=== PATIENT | female | born 1955 | race Caucasian/White ===

== ENCOUNTER 2016-12-05 10:05 | Day surgery (SDC) | payer MEDICARE ==
[2016-12-05 10:28] VITALS: BMI 38.7
[2016-12-05] MEDS ORDERED: Lactated Ringer's 1,000 ML IV ONE ×2 (12:26→13:55)
[2016-12-05] MEDS ORDERED: Lidocaine 2% w Epi 1:200,000 Pf Inj IJ ONE (13:10)
[2016-12-05] MEDS ORDERED: MethylPREDNISolone Depo 40 mg/ml Inj IM ONE (13:40)
[2016-12-05] MEDS ORDERED: Bupivacaine 0.5% 50 ML IJ ONE (13:40)
[2016-12-05] MEDS ORDERED: DiphenhydrAMINE 50 mg/ml Inj IVP PRN (14:13)
[2016-12-05] MEDS ORDERED: Lactated Ringer's 1,000 ML IV SCH (14:13)
[2016-12-05] MEDS: HYDROmorphone 0.5 mg/0.5 ml ISec IVP PRN ×3 (14:15→14:55)
[2016-12-05] MEDS ORDERED: Oxycodone/Acetaminophen 5/325 mg Tab PO PRN ×2 (14:16)
--- NOTE | 2016-12-05 14:21 | PCM.SURG1 ---
Surgeon's Initial Post Op Note - Surgeon's Notes Surgeon: Dr. Hebert ARMENDARIZ Environmental [employer] Specialist: Cassie Queen PA-C, Dr Cole DPM PGY-1 Type of Anesthesia: General Endo Anesthesia Administered By: Dr. Clifton Pre-Operative Diagnosis: left shouler rotator cuff tear Operative Findings: see dictation Post-Operative Diagnosis: same Operation Performed: left should arthroscopy Specimen/Specimens Removed: none Estimated Blood Loss: EBL {In ML}: 5 Blood Products Given: N/A Drains Used: No Drains Post-Op Condition: Good Date of Surgery/Procedure: 12/05/16 Time of Surgery/Procedure: 14:21
[2016-12-05 16:09] VITALS: RESP 18
--- NOTE | 2016-12-05 17:38 | OP ---
PROCEDURE DATE: 12/05/2016 DATE OF OPERATION: 12/05/2016 ATTENDING PHYSICIAN: Gissel Ambrosio MD ASSISTANTS: COCO Rene PREOPERATIVE DIAGNOSIS: 1. Left shoulder partial rotator cuff tear. 2. Synovitis. 3. Impingement. POST- OPERATIVE DIAGNOSIS 1. Left should extensive synovitis. 2. Arroyo capsular adhesions. 3. Biceps tenosynovitis. 4. Anterior and posterior labral tear. 5. Partial supraspinatus tear. 6. Impingement. 7. Bursitis. ANESTHESIA: General and interscalene block. PROCEDURE: 1. Left shoulder extensive debridement. 2. Lysis of adhesions with manipulation. 3. Subacromial decompression with acromioplasty. 4. Biceps tenotomy. EBL: 10 mL SPECIMENS: None. CLOSURE: Primary FLUIDS: See anesthesia sheet ANTIBIOTICS: See anesthesia sheet COMPLICATIONS: None. Indications: After failing a course of non-operative therapy, the patient elected to undergo the abo ve procedures. In the office the risks and possible complications of the shoulder arthroscopy were d iscussed in detail with the patient. These risks include, but are not limited to: continued pain, la ck of motion, infection, vascular injury, and nerve injury including axillary nerve dysfunction, refl ex sympathetic dystrophy, compartment syndrome, limb loss, and . The patient expressed an understanding of the risks and possible benefits of the procedure, and was a lso made aware of the alternatives to surgery. An informed consent was obtained, and was checked imm ediately pre-op. Procedure 1: The patient was correctly identified in the holding area and the left shoulder was perico ed with the surgeon's initials. The patient was transported to the operating room and placed in the s upine position and general anesthesia was obtained. A preoperative orthopedic examination revealed a passive range of motion of 140 degrees of forward elevation, 10 degrees of external rotation, and 10 0 degrees of abduction. Stability examination revealed: No instability was noted. Procedure 2: The patient was then placed in a beach chair position utilizing the beach chair positio jacklyn device. The patient's head was stabilized and the indicated upper extremity was prepped and emilia ped in the standard surgical fashion. The anatomic structures were outlined with a skin marker, and 1% lidocaine with epinephrine was injected into the posterior, anterior, and lateral portal areas. A #21-gauge spinal needle was placed in the glenohumeral joint from the posterior portal and 10 mL of sterile saline was injected into the glenohumeral joint. Return of fluid indicated correct needle pl acement into the joint. The needle was then withdrawn and a #11 blade was used to make a 1 cm incisi on at the posterior portal site. Next, the arthroscopic blunt trocar was inserted into the glenohume ral joint. A #21-gauge spinal needle was placed through the anterior rotator interval, and the anter ior portal was made with a #11 blade after the spinal needle was withdrawn. A 7-mm cannula was then inserted after the skin incision was made and the arthroscopic probe was then used to examine the int ernal structures of the glenohumeral joint. With the shoulder abducted and externally rotated positio n, the articular surface of the rotator cuff was visualized. The arthroscope and probe were then sw itched from posterior to anterior. The posterior labrum, posterior capsule, and biceps anchor reflect ion was then inspected with the arthroscope in the anterior portal position. Examination of the glenohumeral joint revealed: 1. Extensive synovitis. 2. Arroyo capsular adhesions. 3. Biceps tenosynovitis. 4. Anterior and posterior labral tear. 5. Partial supraspinatus tear. Using the probe the labrum was circumferentially assessed for tear. Tears were note at anterior and p osterior labrum. Using the 4.0 motorized shaver and radiofrequency probe, the torn edges of the labru m were debrided until stable rim, preventing any further propagation. At this point, with the arthroscope withdrawn from the joint, a gentle passive manipulation under ane sthesia was performed. The shoulder was manipulated through forward elevation, abduction, and pharmacy graduate intern al/external rotation. The radiofrequency device was then introduced through the anterior portal and then switched to the posterior portal to perform a radiofrequency arroyo-capsular lysis of adhesions. The anterior, inferior, and posterior capsule was released with the hook Graeme Arthrowand to optimize range of motion. The radiofrequency device was used to provide hemostasis during this procedure. After the manipulation and lysis of adhesions, passive range of motion measured 170 degrees of forwar d elevation, 70 degrees of external rotation, and 150 degrees of abduction. Excessive glenohumeral synovitis was cleared with a 4.0 mm full radius shaver. The hypertrophic, eryt hematous synovium was resected, hemostasis was maintained with the radiofrequency device. Upon careful arthroscopic evaluation of biceps tendon and its anchor site at the labrum, it was noted to be highly frayed and tears not amenable to repair. Due to tissue quality and patient's age, decis ion was made to proceed with Biceps tenotomy. Using arthroscopic scissors, biceps tenotomy was succes sfully performed. The loose edges of labrum were debrided using radiofrequency probe and arthroscopic shaver. The 4.0 mm straight shaver was introduced through the anterior portal, and the partially torn suprasp inatus lesion was debrided. Extreme care was taken to protect the chondral surfaces as well as the s ubstance of the intact tendon. It was noted that greater than 50% of the tendon thickness remained a fter the debridement. Sub-Acromial Space At this point, the arthroscope was withdrawn from the glenohumeral joint and subacromial space was th en entered using a blunt trocar. Gentle resistance sweeping against the coracoacromial ligament conf irmed proper placement of the sheath and the arthroscope was inserted. A 1-cm incision was made at t he inferolateral acromial area to create the lateral portal. Examination of the subacromial space revealed: 1. Bursitis. 2. Impingement. Visualization of the subacromial space was difficult due to excessive bursitis. A bursectomy was perf ormed using a combination of radiofrequency device as well as a 4.0-mm full radius motorized shaver. The soft tissue on the undersurface of the acromion was debrided utilizing the 4.0 mm full radius sha rbianna and the radiofrequency device was used for hemostasis. At this point, the coracoacromial ligament was released, with the radiofrequency device, and the acromial branch of the thoracoacromial artery was coagulated with the same instrument. Sub-acromial decompression was performed with a 4.0 mm ira maggy ayse using both the medial portal and the "cutting-block" precision acromioplasty technique from the posterior portal. The undersurface of the acromion was resected to a flat, smooth surface to all ow unrestricted excursion of the rotator cuff. The subacromial space was then irrigated with sterile saline, and closure was instituted with sutures . A dressing was placed consisting of Xeroform, 4 x 4's, ABD pads, and tape. The patient was placed in a sling with an ABD pad in the axilla. The patient was then placed in a supine position and extubated without incident. The patient was tra nsferred to the recovery room in stable condition, having tolerated the procedure well. Patient is given appropriate post-op rehab protocol. Post-operatively, the patient will be started on Phase I shoulder rehab as well as Codman's exercises and we will advance rapidly to regain full rang e of motion and optimized shoulder function. Follow up will be in the office. The sponge and needle count at the close of the case was correct. The attending surgeon was scrubbed and present for all the critical portions of the case, including all of the intra-articular arthrosc opic procedures. During this procedure, I was assisted by COCO Rene, who assisted in positioning the patient on the operating room table as well as transferring the patient from the operating room table to the recovery room stretcher. In addition, COCO Rene, assisted me during the actual operative pr ocedure by positioning the patient's extremity to allow for easier arthroscopic access to all areas o f the joint. The presence of COCO Rene, as my operative grants and contracts assistant was medically necessary t o ensure the utmost safety of the patient in the pre, intra-, and post-operative periods. Gissel Ambrosio MD cc: [id number] TT: 12/05/2016 17:38:08 lui
[2016-12-05 18:57] VITALS: BP 118/72; PULSE 80; TEMP 97.3; O2SAT 97
== END 2016-12-05 19:09 | disposition home or self-care (01) ==
LOC: H.OPSURG 10:05
PROVIDERS: ATTEND Orthopaedic Surgery
DX: M75.112 Incomplete rotator cuff tear or rupture of left shoulder, not specified as traumatic (principal); M75.42 Impingement syndrome of left shoulder; M65.812 Other synovitis and tenosynovitis, left shoulder; E78.5 Hyperlipidemia, unspecified; G40.909 Epilepsy, unspecified, not intractable, without status epilepticus
CPT/HCPCS: 29823; 29825; 82948; 88305; J0171; J1030; J7030; J7120